=== PATIENT | female | born 1990 | race Hispanic/Latino ===

== ENCOUNTER 2019-12-11 10:04 | Inpatient (IN) ==
[2019-12-11 11:27] LABS: BASO# 0.12 X1000 (0.0-0.2); BASO% 1.1 % (0.0-0.8); EOS# 0.62 X1000 (0.0-0.7); EOS% 5.5 % (0.0-10.0); HEMATOCRIT 38.3 % (37.0-47.0); HEMOGLOBIN 12.8 g/dL (12.0-16.0); LYMPH% 25.6 % (20.5-51.1); MCH 28.3 PG (27-31); MCHC 33.4 g/dL (33-37); MCV 84.7 FL (81-99); MONO# 0.78 X1000 (0.11-0.59); MONO% 6.9 % (1.7-9.3); MPV 13.2 FL (7.4-10.4); NEUT% 60.9 % (42.2-75.2); PLT 183 X1000 (130-400); RBC 4.52 XMIL (4.2-5.4); RDW 12.8 % (11.5-14.5); WBC 11.32 X1000 (4.8-10.8)
[2019-12-11 11:55] LABS: AGAP 16; ALB/GLOB RATIO 1.7; ALBUMIN 4.6 g/dL (3.5-5.0); ALKALINE PHOSPHATASE 75 U/L (32-104); BUN 13 mg/dL (8-22); CALCIUM 9.4 mg/dL (8.8-10.2); CHLORIDE 103 mmol/L (98-107); COSMO 277; CREATININE 0.6 mg/dL (0.5-0.9); ESTIMATED GFR > 60; GLUCOSE 92 mg/dL (70-104); GOT 23 U/L (10-30); GPT 39 U/L (10-36); POTASSIUM 3.9 mmol/L (3.5-5.1); SODIUM 139 mmol/L (136-145); TCO2 20 mmol/L (25-35); TOTAL BILIRUBIN 0.29 mg/dL (0.20-1.00); TOTAL PROTEIN 7.3 g/dL (6.3-8.3)
--- NOTE | 2019-12-11 11:59 | EKG Report ---
Test Performed on : 12/11/2019 11:38:28 AM Test Reason : SOB Blood Pressure : / mmHG Vent. Rate : 074 BPM Atrial Rate : 074 BPM P-R Int : 156 ms QRS Dur : 090 ms QT Int : 396 ms P-R-T Axes : 045 072 023 degrees QTc Int : 439 ms Normal sinus rhythm. Normal ECG When compared with ECG of 09-JAN-2019 13:35, No significant change was found Unconfirmed Result
--- NOTE | 2019-12-11 12:53 | Diag Imaging Result Doc PS360 ---
EXAM: CT ANGIOGRM PULMONARY ARTERIES INDICATION: hemoptysis TECHNIQUE: This exam was performed using automated exposure control, adjustment of mA or kV according to patient size, and/or use of iterative reconstruction technique. Thin section axial images and 3-D MIPS were obtained. COMPARISON: None. FINDINGS: There is excessive respiratory motion artifact, which somewhat decreases sensitivity, especially at the distal branches of the pulmonary arteries. However, there is no discrete filling defect to indicate pulmonary embolism. There is no evidence of aortic dissection or aneurysm. There is no cardiomegaly. There is no evidence of significant mediastinal or hilar lymphadenopathy. There is a small focal airspace consolidation involving the left lower lobe that can be seen on image 70 of series 4. This could represent nonspecific focal pneumonitis or focal alveolar hemorrhage. The lungs are clear, otherwise. There is no pleural fluid collection and no pneumothorax. Limited views of the upper abdomen reveals moderate to advanced diffuse hepatic steatosis. There is no evidence of acute osseous abnormality. IMPRESSION: 1.Small focus of airspace consolidation involving the left lower lobe that is nonspecific. This could be the site of focal alveolar hemorrhage or nonspecific pneumonitis. 2.Although this study is limited somewhat by motion artifact, no discrete pulmonary embolism is appreciated. 3.Hepatic steatosis. Electronically signed by Juanito Bae 12/11/2019 12:51 PM
[2019-12-11] MEDS ORDERED: ZOSYN 3.375 GM in NS 50 ML IV ONE (14:05)
[2019-12-11] MEDS ORDERED: TUBERSOL ID ONE (14:07)
--- NOTE | 2019-12-11 14:08 | PROVIDER DOCUMENTATION ---
This chart was entered by Shalini Fang Scribe, acting as scribe for Jean Claude Rodriguez CRNP. HPI-Respiratory General - General Chief Complaint: Shortness of Breath Stated Complaint: SORE THROAT Time Seen by Provider: 12/11/19 10:07 Source: patient Allergies/Adverse Reactions: Patient Allergies Allergy/AdvReac Type Severity Reaction Status Date / Time No Known Allergies Allergy Verified 12/11/19 10:52 Home Medications: Home Medication List Medication Instructions Recorded Confirmed Last Taken Type NK [No Home Medications] 12/11/19 12/11/19 Unknown History - History of Present Illness-Resp Nature of Presenting Problem: 29yohf presents to ED cc chest pain with deep inspiration, SOB, productive cough with black sputum, night sweats and generalized body aches for 3 days. She does live with multiple family members. Pt denies F/N/V/D/recent travel or known contact with COVID-19. Quality of Pain: reports: tightness Severity in ED: reports: moderate Onset/Duration: reports: 3 days ago Timing: reports: still present Cough Quality/Degree: reports: productive cough Episode Frequency: no prior episodes Current Respiratory Medication Therapy: Initiated see nurses note Modifying Factors: worse with: deep breath Associated Symptoms: reports: chest pain/soreness, cough, shortness of breath. denies: fever/chills Similar Symptoms Previously?: No Recently seen or treated by another doctor?: No Review of Systems - Adult - REVIEW OF SYSTEMS - ADULT Constitutional: reports: see HPI, night sweats. denies: chills, fever, fatique Eyes: reports: no symptoms reported Ears, Nose, Mouth & Throat: reports: no symptoms reported Cardiovascular: reports: see HPI, chest pain. denies: irregular heart rate, palpitations Respiratory: reports: see HPI, chronic cough, excessive sputum production (black), shortness of breath Gastrointestinal: reports: no symptoms reported Genitourinary: reports: no symptoms reported Musculoskeletal: reports: see HPI, muscle aches Integumentary: reports: no symptoms reported Neurological: reports: no symptoms reported Psychiatric: reports: no symptoms reported Endocrine: reports: no symptoms reported Hematologic/Lymphatic: reports: no symptoms reported Allergic/Immunologic: reports: no symptoms reported All Other Systems: Reviewed and Negative Past History - Adult - PAST MEDICAL HISTORY-ADULT Review of Records: reports: Nursing Assessment Review, Medications Reviewed, Social history reviewed & non-contributory. Major Childhood Illnesses: reports: denies history Cardiovascular: reports: denies history Respiratory: reports: denies history Gastrointestinal: reports: denies history Obstetrical/Gynecological: reports: denies history Genitourinary: reports: denies history Musculoskeletal: reports: denies history Neurological: reports: denies history Endocrine/Immune: reports: denies history Other Conditions: reports: denies history - PRIOR SURGERIES/PROCEDURES Surgical/Procedure History: reports: none - PRIOR HOSPITALIZATIONS Prior Hospitalizations: reports: none - IMMUNIZATION STATUS Childhood Immunizations: See Nurse Assessment Flu Vaccine: See Nurse Assessment - FAMILY HISTORY Family History: reviewed, not pertinent Physical Exam-General - PHYSICAL EXAM-ADULT Initial Vital Signs Reviewed: Yes - CONSTITUTIONAL General Appearance: appears well, alert. negative: anxious, combative - EYES Eyes: PERRL/EOMI, pink conjunctivae. negative: photophobia - HEAD, EARS, NOSE, MOUTH & THROAT HENMT: normocephalic/atraumatic, moist mucous membranes, TM abnormal (bulging and Otits media, bilateral). negative: angioedema - NECK Neck: non-tender, full range of motion, supple, normal inspection. negative: lymphadenopathy - RESPIRATORY Respiratory: chest non-tender, normal breath sounds, wheezing (bilateral in lower lobes), other (productive cough). negative: crackles, rhonchi - CARDIOVASCULAR Cardiovascular: normal peripheral pulses, regular rate, rhythm, no edema, no murmur. negative: bradycardia, tachycardia - GASTROINTESTINAL (ABDOMEN) Abdominal Exam: normal bowel sounds, non tender, soft. negative: guarding, rebound - LYMPHATIC Lymphatic: no adenopathy. negative: enlargement - MUSCULOSKELETAL Back Exam: normal inspection, no CVA tenderness, no vertebral tenderness Extremity: normal range of motion, non-tender, normal gait, normal inspection, no pedal edema, no calf tenderness, normal capillary refill. negative: deformity, swelling - SKIN Integumentary: normal color, normal turgor, warm/dry. negative: diaphoresis, jaundice, rash - NEUROLOGIC Neurologic: pension agent II-XII nml as tested, grossly normal - PSYCHIATRIC Psych/Mental Status: normal mood/affect, oriented x 3. negative: anxious - HEART Score HEART Score: History: Slightly Suspicious HEART Score: ECG: Normal HEART Score: Age: < or = 45 Years HEART Score: Risk Factors for Atherosclerotic Disease: No Risk Factors Known Progress - PLAN OF CARE/RESULTS Progress/Plan/Lab Results: Vital Signs - 8 hr 12/11/19 10:44 Temperature 98.8 F Pulse Rate 80 Respiratory Rate 22 Blood Pressure 135/76 O2 Sat by Pulse Oximetry 97 Bedside Urine ED: Urine Bedside Start: 12/11/19 10:36 Freq: ORDERED Status: Active Protocol: Activity Type Activity Date Activity User E-Sign Co-Sign Detail Recorded Client Recorded Date Recorded By Document 12/11/19 11:47 [id number] 12/11/19 11:48 [id number] 12/11/19 11:47 Point of Care [Bedside Point of Care] -Lot # [id number] - Results Negative -Control Line Visible? Yes Laboratory Results - last 24 hr 12/11/19 12/11/19 12/11/19 11:15 11:15 11:15 WBC 11.32 H RBC 4.52 Hgb 12.8 Hct 38.3 MCV 84.7 MCH 28.3 MCHC 33.4 RDW Std Deviation 12.8 Plt Count 183 MPV 13.2 H Immature Gran % (Auto) 0.0 Neut % (Auto) 60.9 Lymph % (Auto) 25.6 [place] % (Auto) 6.9 Eos % (Auto) 5.5 Baso % (Auto) 1.1 H Immature Gran # (Auto) 0.00 Neut # (Auto) 6.90 H Lymph # (Auto) 2.90 [place] # (Auto) 0.78 H Eos # (Auto) 0.62 Baso # (Auto) 0.12 Sodium 139 Potassium 3.9 Chloride 103 Carbon Dioxide 20 L Anion Gap 16 BUN 13 Creatinine 0.6 Estimated GFR/1.73 m2 > 60 BUN/Creatinine Ratio 22 Glucose 92 Calculated Osmolality 277 Calcium 9.4 Total Bilirubin 0.29 AST 23 ALT 39 H Alkaline Phosphatase 75 Total Protein 7.3 Albumin 4.6 Globulin 2.7 Albumin/Globulin Ratio 1.7 Plasma Lactate 1.2 Orders Category Date Time Status ED: Urine Bedside ORDERED Care 12/11/19 10:36 Active NEWS Score 2-4:Order NEWS Lactate Series NOW Care 12/11/19 10:53 Completed CTA [CT ANGIOGRM PULMONARY ARTERIES] [CT] Stat Exams 12/11/19 10:37 Completed CBC WITH ELECTRONIC DIFF [HEME] Stat Lab 12/11/19 11:15 Completed COMPREHENSIVE METABOLIC PANEL [CHEM] Stat Lab 12/11/19 11:15 Completed LACTATE, PLASMA [CHEM] Lab 12/11/19 11:15 Completed LACTATE, PLASMA [CHEM] Lab 12/11/19 14:00 Uncollected LACTATE, PLASMA [CHEM] Lab 12/11/19 17:00 Uncollected SPUTUM CULTURE WITH GRAM STAIN [RM] Stat Lab 12/11/19 10:40 Uncollected EKG [EKG] Stat Ther 12/11/19 11:58 Draft Result Diagrams: 12/11/19 11:15 12/11/19 11:15 - EKG 1 Time of EKG reading by physician:: 11:38 EKG Read and Signed by:: Jae Aldrich EKG Interpretation (*Must complete 3 of following elements*): Normal Rate: 74 Rhythm: NSR [employer]: normal QRS: normal ST Wave: normal - CT/MRI 1 CT Study: other (Pulmonary) Impression: See EMR Report (IMPRESSION: 1.Small focus of airspace consolidation involving the left lower lobe that is nonspecific. This could be the site of focal alveolar hemorrhage or nonspecific pneumonitis. 2.Although this study is limited somewhat by motion artifact, no discrete pulmonary embolism is appreciated. 3.Hepatic steatosis. Electronically signed by Juanito Bae 12/11/2019 12:51 PM) - CONSULTS/PCP/HOSPITALIST Notification #1 *Consult/PCP/Hospitalist*: Dr. Montelongo [phone];re-[phone] Time Discussed: 13:29 Consult Disposition: other (wants pt admitted to hospitalist and will see upstairs) #2 Consult: Rosa/[email or web address] Time Discussed: 14:02 Consult Disposition: Admit (accepted to Hospitalist) Departure - Departure Date of Disposition Decision: 12/11/19 Time of Disposition Decision: 12:50 DIAGNOSIS: Hemoptysis, Pneumonitis Dyspnea Qualifiers: Dyspnea type: shortness of breath Qualified Code(s): R06.02 - Shortness of breath Disposition: ADMITTED INPATIENT 09 Certified Medical Emergency: Emergent Condition: Stable Additional Instructions: ED Follow Up Instructions: You have been treated by a care provider in the Emergency Department. These instructions are being provided to you so you can have an understanding of how to care for yourself upon discharge. Upon discharge from the Emergency Department, you are responsible for making arrangements for follow-up care by a physician of your choice. Take all prescribed medications as directed. Return to the Emergency Department immediately for any new or worsening symptoms. You may call the Physician Referral phone number at [phone] to obtain a list of Physicians who are taking new patients. Referrals and Follow-Ups: None,PCP [Primary Care Provider] - - Critical Care Note This patient required my direct & personal management of CC.: No Attestation - Physician/ JESUSITA Attestation Patient care was provided by Advanced Practice Provider:: Yes Advanced Practice Provider:: Jean Claude Rodriguez Advanced Practice Provider documentation review:: The Mid-level provider documentation, treatment plan and medical decision making was reviewed by the physician who agrees with all treatment and medical decision making by the MLP. The physician spent face to face time with patient:: No Advanced Practice Provider documentation review:: Supervising physician onsite and consulted in the evaluation and care of this patient. The physician did not have a face to face encounter with the patient. This chart was documented by the indicated scribe, (Shalini Fang Scribe) and accurately reflects the services I performed and decisions made by me, Jean Claude Rodriguez CRNP, as attested by the provider's signature.
[2019-12-11 14:19] LABS: URINE SOURCE CLEAN CATCH
[2019-12-11 14:31] LABS: BILIRUBIN URINE NEGATIVE (NEGATIVE); BLOOD URINE NEGATIVE (NEGATIVE); COLOR YELLOW; GLUCOSE URINE NEGATIVE (NEGATIVE); KETONE URINE NEGATIVE (NEGATIVE); LEUKOCYTES URINE NEGATIVE (NEGATIVE); NITRITE URINE NEGATIVE (NEGATIVE); PROTEIN URINE TRACE mg/dL (NEGATIVE); SP GRAVITY URINE 1.027; TURBIDITY URINE HAZY (CLEAR); UROBILINOGEN URINE NORMAL (NORMAL)
[2019-12-11 14:32] LABS: UR EPITHELIAL CELLS >10 /HPF (<10); URINE BACTERIA 2+ /HPF; URINE RBC <10 /HPF (<10)
[2019-12-11 14:33] LABS: UR AMPHETAMINES QUAL NONE DETECTED (NONE DETECT); UR BARBITUATES QUAL NONE DETECTED (NONE DETECT); UR BENZODIAZEPIN QUAL NONE DETECTED (NONE DETECT); UR CANNABINOIDS QUAL NONE DETECTED (NONE DETECT); UR COCAINE QUAL NONE DETECTED (NONE DETECT); UR METHADONE QUAL NONE DETECTED (NONE DETECT); UR OPIATES QUAL NONE DETECTED (NONE DETECT); UR OXYCODONE QUAL NONE DETECTED (NONE DETECT); UR PCP QUAL NONE DETECTED (NONE DETECT)
[2019-12-11] MEDS: NS 1,000 ML IV SCH (15:32)
--- NOTE | 2019-12-11 15:49 | PULMONOLOGY CONSULTATION ---
DATE: 12/11/2019 HISTORY OF PRESENT ILLNESS: This is a 29-year-old [place] female who presented to the ER this morning with pleurisy, shortness of breath, productive cough with black sputum, night sweats and generalized body aches for 3 days. Initial labs in the ER is nonsignificant except mild leukocytosis. CT angiogram pulmonary arteries showed small focus of airspace consolidation involving the left lower lobe that is nonspecific and could be the site of focal alveolar hemorrhage or nonspecific pneumonitis. There is no discrete pulmonary embolism appreciated and hepatic steatosis identified. The patient currently is held in the ER. She is lying in bed with no acute distress noted. She is on room air. She speaks limited Turkish. She does have chronic productive cough with excessive black phlegm, shortness of breath with activities and pleurisy and chest tightness. She reports no fever, chills, palpitation, sore throat, nausea, bowel habit change, urination discomfort, orthopnea or pedal edema. She has no recent travel. She has no known contact with [employer]. She does live with multiple family members, but none of them was sick recently. She also reports night sweats and generalized body ache in the last 3 days. PAST MEDICAL HISTORY: Nonsignificant. She does have history of bronchitis in 2018 with some allergies. PAST SURGICAL HISTORY: None, FAMILY HISTORY: Patient lives at home with multiple family members. She has 4 children. She is a never smoker. She has no history of alcohol or illicit drug use. FAMILY HISTORY: Unknown. REVIEW OF SYSTEMS: A limited review of systems was performed as patient speaks limited Turkish. All pertinent information is listed within the HPI. PHYSICAL EXAMINATION: Vital Signs: Temperature 98.8 degrees, blood pressure 145/76, pulse 80, respiratory rate 22, oxygen saturation 97% on room air. General: Well developed, well nourished, lying in bed, no acute distress noted. HEENT: Atraumatic, normocephalic. Trachea midline. Mucosa pink and moist. Oropharynx clear. Pupils equal, round, reactive to light. Respiratory: Even and unlabored. No increased work of breathing. No accessory muscle use noted. Symmetrical excursion. Auscultation revealed mild expiratory crackles. Some expiratory wheezing, bibasilarly. No crackles noted. Cardiovascular: Regular rate and rhythm with S1 and S2 appreciated. Gastrointestinal: Soft, nontender, nondistended. Normoactive bowel sounds in all 4 quadrants. Extremities: No pedal edema. No cyanosis. No clubbing. Dorsalis pedis 2+ bilaterally. Neurologic: Alert and oriented x3. Speech fluent. Follows commands. Moving all extremities equally with no weakness noted. LABORATORY DATA: White blood cell 11.32, hemoglobin 12.8, hematocrit 38.3, platelets 183,000. Sodium 139, potassium 3.9, chloride 103, carbon dioxide 20, BUN 14, creatinine 0.6 glucose 92. IMAGING DATA: See HPI for CT angiogram pulmonary arterials. ASSESSMENT: This is a 29-year-old [place] female with no significant medical history. She presented to the ER this morning with pleurisy, shortness of breath, hemoptysis, night sweats and generalized body ache for [address] angiogram, pulmonary arteries revealed small focus of airspace consolidation involving the left lower lobe that is nonspecific and could be the site of a focal alveolar hemorrhage or nonspecific pneumonitis. The patient currently is holding in the emergency room. 1. Hemoptysis, rule out pulmonary embolism. TB skin test ordered. 2. Pneumonia. Sputum culture has been ordered but is not collected yet. 3. Coronavirus Disease-19 tested with results pending. PLAN: 1. We recommend to watch the patient overnight in the hospital to monitor hemoptysis closely. If the patient stays stable or improved, she can be discharged home with empiric antibiotic such as Levaquin for community-acquired pneumonia. 2. We follow up the results of TB skin test. 3. Further recommendation pending hospital course. Thank you for the courtesy of this consult. Dr. Montelongo did the examination, evaluation, management and orders. JD did dictation for Dr. Montelongo according to his direction. Dictated by JD De Leon for Dick Montelongo MD cc: JD De Leon MD [facility]
--- NOTE | 2019-12-11 15:55 | HISTORY AND PHYSICAL ---
This is a 29-year-old said for 4 days she has had a little more cough, feels like she might have subjective fever and productive cough, some blood-tinged sputum and dark sputum at times, brown sputum. PAST MEDICAL HISTORY: Unremarkable except she has had 2 vaginal deliveries. No past medical history of lupus or heart disease or diabetes. No surgical history. ALLERGIES: No known drug allergies that she is aware of. FAMILY HISTORY: Noncontributory. She does not have any history she knows of family of lung problems or kidney problems or heart problems. SOCIAL HISTORY: Negative for tobacco, alcohol and no illicit drug use. REVIEW OF SYSTEMS: She does not report any weight gain or loss, possibly subjective fever.HEENT: Sore throat and some postnasal drainage and sinus congestion in the last couple days. No neck pain. No complaints of adenopathy. Respiratory: Slight increase in dyspnea and cough, shortness of breath. Cardiovascular: No chest pain or tachy palpitation. Gastrointestinal and Genitourinary: No gross hematuria or dysuria. Musculoskeletal/Neurologic: No focal neurologic deficits. PHYSICAL EXAMINATION: She is awake and alert. Pleasant. She does not speak [place] very well. We used an parlor maid. VITAL SIGNS: Temp 98.8 degrees, pulse 80, respirations 22, blood pressure 135/76. HEENT: Pupils are equal and round. LUNGS: Clear in all lung piña anterolateral. CARDIOVASCULAR: Regular rhythm and rate without murmur or S3. No cervical adenopathy. CVP less than 6 cm. ABDOMEN: Soft. SKIN: Warm and dry. EXTREMITIES: No pedal edema. White count 07816, hematocrit 38, platelet count 183,000. Sodium 139, potassium 3.9, chloride 103, BUN 13, creatinine 0.6. Blood sugar 92. Calcium 9.4, albumin 4.6. Urine drug screen negative for opiates, oxycodone, methadone, barbiturates, phencyclidine, amphetamines, benzodiazepines, urine cocaine and cannabinoids. Urinalysis unremarkable. There was 2+ bacteria. We did see a few white blood cells, but not had any symptoms. We did a pulmonary arteriogram CT. There is small focus of airspace consolidation involving the left lower lobe that is nonspecific. This could be the site of focal alveolar hemorrhage, nonspecific pneumonitis. There was some motion artifact. ASSESSMENT AND PLAN: Upper respiratory complaints, sore throat. Appears to have pneumonitis nonspecific. She has no known exposure to COVID-19, but we will check with Dr. Montelongo. He would like to at least check that. We will give her some albuterol, Atrovent or DuoNeb and will put her on a little steroid inhaler as well using Symbicort 80 mcg 2 puffs twice a day. She has no shows no allergies but we are going to put her on Rocephin 1 q.24 hours and we will put her on azithromycin 500 mg IV daily. We will give her a little supplementary O2 at 2 L and will put her on some guaifenesin 600 mg extended release twice a day, put her on a regular diet. Repeat a chest x-ray in the morning. We will check her T4, TSH, B12, and folate. We will check a basic metabolic profile and magnesium and CBC again in the morning as well as another portable chest x- ray. cc: Edwin Bonilla MD
[2019-12-11] MEDS ORDERED: DUONEB (A & A) INH SCH (16:00)
[2019-12-11] MEDS: ROCEPHIN 1 GM in NS 50 ML IV SCH (16:50)
[2019-12-11] MEDS: ZITHROMAX 500 MG/NS 500 MG/250 ML IVPB IV SCH (18:40)
[2019-12-11] MEDS: TYLENOL PO PRN (22:08)
[2019-12-11] MEDS: MUCINEX PO SCH (22:08)
[2019-12-11] MEDS: VENTOLIN HFA INH SCH (22:33)
[2019-12-11] MEDS: SYMBICORT 80/4.5 MICROGM INHALER INH SCH (23:03)
[2019-12-12] MEDS: VENTOLIN HFA INH SCH ×4 (04:10→22:25)
[2019-12-12] MEDS: NS 1,000 ML IV SCH ×2 (05:44→15:07)
[2019-12-12 06:42] LABS: BASO# 0.02 X1000 (0.0-0.2); BASO% 0.3 % (0.0-0.8); EOS# 0.59 X1000 (0.0-0.7); EOS% 8.6 % (0.0-10.0); HEMOGLOBIN 11.7 g/dL (12.0-16.0); LYMPH# 3.02 X1000 (1.2-3.4); LYMPH% 44.2 % (20.5-51.1); MCH 28.5 PG (27-31); MCHC 33.4 g/dL (33-37); MCV 85.4 FL (81-99); MONO# 0.48 X1000 (0.11-0.59); MPV 13.1 FL (7.4-10.4); NEUT# 2.72 X1000 (1.4-6.5); NEUT% 39.9 % (42.2-75.2); PLT 174 X1000 (130-400); RDW 12.9 % (11.5-14.5); WBC 6.83 X1000 (4.8-10.8)
[2019-12-12 07:04] LABS: AGAP 12; ALB/GLOB RATIO 1.4; ALBUMIN 3.9 g/dL (3.5-5.0); ALKALINE PHOSPHATASE 65 U/L (32-104); BUN 9 mg/dL (8-22); CALCIUM 8.7 mg/dL (8.8-10.2); CHLORIDE 106 mmol/L (98-107); COSMO 276; CREATININE 0.5 mg/dL (0.5-0.9); ESTIMATED GFR > 60; GLUCOSE 91 mg/dL (70-104); GOT 20 U/L (10-30); GPT 32 U/L (10-36); MAGNESIUM 2.2 mg/dL (1.5-2.7); POTASSIUM 3.8 mmol/L (3.5-5.1); SODIUM 139 mmol/L (136-145); TCO2 21 mmol/L (25-35); TOTAL BILIRUBIN 0.37 mg/dL (0.20-1.00); TOTAL PROTEIN 6.6 g/dL (6.3-8.3)
[2019-12-12 07:23] LABS: FREE T4 0.87 ng/dL (0.93-1.70); TSH 1.79 uIUmL (0.27-4.20)
[2019-12-12] MEDS: ZITHROMAX 500 MG/NS 500 MG/250 ML IVPB IV SCH ×2 (07:38→22:50)
--- NOTE | 2019-12-12 08:40 | Diag Imaging Result Doc PS360 ---
EXAM: CHEST-PORTABLE 12/12/2019 HISTORY: pneumonia TECHNIQUE: AP portable upright at 0820 COMMENT: There is no evidence of acute cardiac or pulmonary disease. Considering differences in technique there has been no significant change since 01/09/2019. IMPRESSION: No acute disease. Electronically signed by Gage Kim 12/12/2019 8:37 AM
[2019-12-12] MEDS: SYMBICORT 80/4.5 MICROGM INHALER INH SCH ×2 (08:53→20:21)
[2019-12-12] MEDS: MUCINEX PO SCH ×2 (09:54→22:51)
--- NOTE | 2019-12-12 09:54 | PROGRESS NOTE ---
DATE: 12/12/2019 SUBJECTIVE: Ms. Hagan feels better, breathing comfortably. OBJECTIVE: Vital Signs: She remains afebrile, temperature 97.9 degrees. Pulse 94, respirations 16, blood pressure 111/58. HEENT: Pupils are equal and round. Lungs: Clear in all lung piña. Cardiovascular: Regular rhythm and rate without murmur or S3. Abdomen: Soft. Skin: Warm and dry. IMAGING STUDIES: Chest x-ray from this morning, no acute disease. ASSESSMENT AND PLAN: Feeling better. Her Coronavirus Disease 2019 was checked and waiting on results. Dr. Montelongo has evaluated. She had some hemoptysis, rule out pulmonary embolism. Tuberculosis skin test was ordered. Suspect early pneumonia. Cultures obtained. Coronavirus Disease 2018 tested, results pending. If remains stable, I think she can go either tomorrow or Sunday and let her go with an antibiotic, Levaquin, for community-acquired pneumonia. Follow up on the results of the tuberculosis skin test. REVIEW OF HER ORDERS: She is on Symbicort inhaler and DuoNeb, getting guaifenesin ER 600 mg b.i.d., ceftriaxone 1 gram IV every 24 hours and azithromycin. LABORATORY DATA: Her labs were unremarkable this morning, white count 6830, hematocrit 35, platelet count 174,000. Sodium 139, potassium 3.8, chloride 106, bicarbonate 21, BUN 9, creatinine 0.5. Her T4 was 0.87. TSH is 1.79. cc: Edwin Bonilla MD
[2019-12-12] MEDS: ROCEPHIN 1 GM in NS 50 ML IV SCH (15:07)
--- NOTE | 2019-12-12 18:42 | PULMONOLOGY PROGRESS NOTE ---
DATE: 12/12/2019 SUBJECTIVE: The patient is awake and alert. She reports she does not have any pain. She denies additional cough or blood. No sputum has been collected because she is currently in isolation for possible COVID-19. OBJECTIVE: vital signs: The patient has been afebrile for the last 24 hours. Blood pressure 127/68, heart rate 90, respiratory rate 18, oxygen saturation 99% on room air. HEENT: Pupils are equal and reactive. Oropharynx appears clear. neck: Neck is supple. pulmonary: Chest reveals good air entry bilaterally without wheezing or rhonchi. Cardiac: S1-S2. abdomen: Abdomen is soft. Extremities: Extremities are without edema. LABORATORIES: Microbiology is negative to date. IMPRESSION: A 29-year-old female who presents with: 1. Cough. 2. Pleurisy. 3. Hemoptysis. RECOMMENDATIONS: 1. Send a QuantiFERON Gold TB test for possible tuberculosis. 2. Collect sputum for AFB and bacteria if the COVID-19 test returns negative. cc: Waldo Dick MD
[2019-12-12] MEDS: TYLENOL PO PRN (22:51)
[2019-12-13] MEDS: VENTOLIN HFA INH SCH ×4 (04:20→22:10)
[2019-12-13 06:06] LABS: BASO# 0.01 X1000 (0.0-0.2); BASO% 0.1 % (0.0-0.8); EOS# 0.42 X1000 (0.0-0.7); EOS% 6.1 % (0.0-10.0); HEMATOCRIT 35.3 % (37.0-47.0); HEMOGLOBIN 11.6 g/dL (12.0-16.0); LYMPH# 3.12 X1000 (1.2-3.4); LYMPH% 45.3 % (20.5-51.1); MCH 28.4 PG (27-31); MCHC 32.9 g/dL (33-37); MCV 86.3 FL (81-99); MONO# 0.43 X1000 (0.11-0.59); MONO% 6.3 % (1.7-9.3); MPV 12.9 FL (7.4-10.4); NEUT% 42.2 % (42.2-75.2); PLT 166 X1000 (130-400); RBC 4.09 XMIL (4.2-5.4); RDW 12.8 % (11.5-14.5); WBC 6.88 X1000 (4.8-10.8)
[2019-12-13 06:25] LABS: AGAP 13; ALB/GLOB RATIO 1.7; ALKALINE PHOSPHATASE 66 U/L (32-104); BUN 9 mg/dL (8-22); CALCIUM 8.6 mg/dL (8.8-10.2); CHLORIDE 108 mmol/L (98-107); COSMO 280; CREATININE 0.5 mg/dL (0.5-0.9); ESTIMATED GFR > 60; GLUCOSE 92 mg/dL (70-104); GOT 22 U/L (10-30); GPT 37 U/L (10-36); MAGNESIUM 1.9 mg/dL (1.5-2.7); POTASSIUM 3.8 mmol/L (3.5-5.1); SODIUM 141 mmol/L (136-145); TCO2 20 mmol/L (25-35); TOTAL BILIRUBIN 0.23 mg/dL (0.20-1.00); TOTAL PROTEIN 6.4 g/dL (6.3-8.3)
[2019-12-13] MEDS: SYMBICORT 80/4.5 MICROGM INHALER INH SCH ×2 (07:55→20:02)
[2019-12-13] MEDS: MUCINEX PO SCH ×2 (08:00→21:42)
--- NOTE | 2019-12-13 09:22 | PROGRESS NOTE ---
DATE: 12/13/2019 SUBJECTIVE: She feels good. No cough. No fever. No sore throat. OBJECTIVE: Vitals: Temperature 97.4 degrees, pulse 85, respirations 14, blood pressure 106/52. HEENT: Pupils are equal and round. Lungs: Lungs are clear in all lung piña. Cardiovascular: Regular rhythm and rate without murmur or S3. Abdomen: Soft. Skin: Warm and dry. ASSESSMENT: A 29-year-old female who presented with cough, pleurisy, and hemoptysis. We have a QuantiFERON gold TB test for possible tuberculosis, and collected sputum for AFB and bacteria. If the COVID-19 returns negative, we will send that off. REVIEW OF HER ORDERS: She is on ceftriaxone 1 g IV q.24h., azithromycin 500 mg IV q.24h, budesonide/formoterol 2 puffs b.i.d., and guaifenesin ER 600 mg b.i.d. cc: Edwin Bonilla MD
--- NOTE | 2019-12-13 14:13 | PULMONOLOGY PROGRESS NOTE ---
DATE: 12/13/2019 SUBJECTIVE: The patient is awake, alert, and conversant. She does not speak fluent [place]. She is without complaints. OBJECTIVE: Vital Signs: The patient has been afebrile for the last 24 hours. Blood pressure 106/52, heart rate 85, respiratory rate 14, oxygen saturation 99%. HEENT: Pupils are equal and reactive. Oropharynx appears clear. Neck: Supple. Chest: Reveals good air entry bilaterally. No wheezing. No rhonchi. No tactile fremitus. Cardiac: S1-S2. Abdomen: Soft. Extremities: Without edema. LABORATORIES: White blood count 6.88, hemoglobin 11.6, platelet count 166,000. Microbiology reveals no new data. IMPRESSION: A 29-year-old with 1. Cough. 2. Hemoptysis. 3. Pleurisy. PLAN: 1. Await the results of her COVID-19 studies. 2. Attempt to collect sputum for C and S and AFB after COVID-19 test returns. 3. Await QuantiFERON gold study. 4. Continue current antibiotic regimen. cc: Waldo Dick MD
[2019-12-13] MEDS: ROCEPHIN 1 GM in NS 50 ML IV SCH (16:31)
[2019-12-13] MEDS: NS 1,000 ML IV SCH ×2 (16:31→21:43)
[2019-12-13] MEDS: ZITHROMAX 500 MG/NS 500 MG/250 ML IVPB IV SCH (21:42)
[2019-12-14] MEDS: VENTOLIN HFA INH SCH ×4 (03:42→22:52)
[2019-12-14] MEDS: NS 1,000 ML IV SCH ×2 (05:08→15:44)
[2019-12-14 06:21] LABS: BASO# 0.03 X1000 (0.0-0.2); BASO% 0.4 % (0.0-0.8); EOS# 0.36 X1000 (0.0-0.7); HEMATOCRIT 35.7 % (37.0-47.0); HEMOGLOBIN 11.6 g/dL (12.0-16.0); LYMPH# 3.01 X1000 (1.2-3.4); LYMPH% 42.1 % (20.5-51.1); MCH 28.2 PG (27-31); MCHC 32.5 g/dL (33-37); MCV 86.7 FL (81-99); MONO# 0.48 X1000 (0.11-0.59); MONO% 6.7 % (1.7-9.3); MPV 12.8 FL (7.4-10.4); NEUT# 3.27 X1000 (1.4-6.5); NEUT% 45.8 % (42.2-75.2); PLT 168 X1000 (130-400); RBC 4.12 XMIL (4.2-5.4); RDW 12.7 % (11.5-14.5); WBC 7.15 X1000 (4.8-10.8)
[2019-12-14 06:31] LABS: AGAP 14; ALB/GLOB RATIO 1.6; ALKALINE PHOSPHATASE 62 U/L (32-104); BUN 10 mg/dL (8-22); CHLORIDE 105 mmol/L (98-107); COSMO 278; CREATININE 0.6 mg/dL (0.5-0.9); ESTIMATED GFR > 60; GLUCOSE 91 mg/dL (70-104); GOT 20 U/L (10-30); GPT 34 U/L (10-36); MAGNESIUM 1.8 mg/dL (1.5-2.7); POTASSIUM 3.9 mmol/L (3.5-5.1); SODIUM 140 mmol/L (136-145); TCO2 21 mmol/L (25-35); TOTAL BILIRUBIN 0.21 mg/dL (0.20-1.00); TOTAL PROTEIN 6.5 g/dL (6.3-8.3)
--- NOTE | 2019-12-14 08:01 | PROGRESS NOTE ---
DATE: 12/14/2019 SUBJECTIVE: She feels good. She wants to go home. I talked to her . She does not speak French very well, but explained that we were still waiting on her TB serum test. Her TB skin test came back negative. We are still waiting on her Covid-19 as well. She looks good, breathing comfortably. OBJECTIVE: Temperature 97.7 degrees, pulse 78, respirations 18, blood pressure 108/69. Pupils are equal and round. Lungs are clear in all lung piña. Cardiovascular Examination: Regular rhythm and rate without murmur or S3. Urine output is 5900 mL. ASSESSMENT AND PLAN: Cough, hemoptysis, and pleurisy. Await results of her Covid-19. Attempt to collect sputum for culture and sensitivity, and AFB after Covid-19 returns. Await QuantiFERON gold study results. Anxious to go home. Hopefully, she can go home tomorrow. We will repeat another chest x-ray. Her x-ray from the showed no acute disease. Her pulmonary arteriogram showed a small focus of airspace consolidation involving the left lower lobe, nonspecific, and could be a site alveolar hemorrhage, and some evidence of hepatic steatosis. Continue current medications. She is on azithromycin and ceftriaxone. No growth from her blood cultures and urine cultures were negative. cc: Edwin Bonilla MD
[2019-12-14] MEDS: MUCINEX PO SCH ×2 (08:20→21:56)
[2019-12-14] MEDS: SYMBICORT 80/4.5 MICROGM INHALER INH SCH ×2 (08:39→22:52)
[2019-12-14] MEDS: ROCEPHIN 1 GM in NS 50 ML IV SCH (15:44)
[2019-12-14] MEDS: ZITHROMAX 500 MG/NS 500 MG/250 ML IVPB IV SCH (21:56)
--- NOTE | 2019-12-15 00:50 | PULMONOLOGY PROGRESS NOTE ---
DATE: 12/14/2019 SUBJECTIVE: The patient is awake, alert, and conversant. She denies additional cough or bloody sputum. She is without specific complaints. OBJECTIVE: Vital Signs: The patient has been afebrile for the last 24 hours. Blood pressure 121/76, heart rate 75, respiratory rate 18, oxygen saturation 100%. HEENT: Pupils are equal and reactive. Oropharynx appears clear. Neck: Supple. Chest: Reveals good air entry bilaterally without wheezing or rhonchi. Cardiac: S1, S2. Abdomen: Soft. Extremities: Without edema. LABORATORIES: Coronavirus testing is negative. QuantiFERON Gold TB test is pending. IMPRESSION: A 29-year-old with: 1. Cough. 2. Hemoptysis. 3. Pleurisy. 4. Negative Coronavirus Disease 2019 testing. PLAN: 1. Await QuantiFERON Gold TB study testing. 2. Collect sputum for C and S. 3. Anticipate discharge if QuantiFERON Gold testing is negative. cc: Waldo Dick MD
[2019-12-15] MEDS: VENTOLIN HFA INH SCH ×2 (04:44→08:43)
[2019-12-15] MEDS: NS 1,000 ML IV SCH (05:12)
[2019-12-15] MEDS: SYMBICORT 80/4.5 MICROGM INHALER INH SCH (08:43)
[2019-12-15] MEDS: MUCINEX PO SCH (10:08)
[2019-12-15 11:05] VITALS: BP 127/87
--- NOTE | 2019-12-15 14:16 | DISCHARGE SUMMARY ---
ADMISSION DATE: 12/11/2019 DISCHARGE DATE: 12/15/2019 This is a 29-year-old. She in last 4 days had a little more cough, feels like she might have subjective fever and cough and was concerned about a viral or a respiratory tract infection. PAST MEDICAL HISTORY: Unremarkable except for 2 vaginal deliveries. On presentation we did check her for COVID-[address] Montelongo wanted to check her for TB as well, pulmonary arteriogram she had small focus of airspace consolidation involving left lower lobe nonspecific and her chest x-ray really showed no acute disease. She did fine, remained afebrile, no cough. COVID-19 was negative. TB skin test was negative, her QuantiFERON gold results still pending but clinically looked good and felt she could go home, want her to follow up with Dr. Montelongo in a couple weeks. She will be discharged and she really is on no medication. Encourage her she wants to take some Mucinex [id number] she can but does not need any bronchodilators. cc: Edwin Bonilla MD
--- NOTE | 2019-12-15 15:46 | PROVIDER PROGRESS NOTE ---
Progress Note Dr. 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 She is on room air. No acute distress noted. She speaks very limited Mongolian. During my encounter, she called her and asked him to interpret. She reports no cough, no sputum and no pleurisy for 2 days. She is eager to go home. Objective: Vital Signs: T 97.8 (no fever in last 24 hours), VT 77, RR 19, BP 112/66 and SaO2 98% on room air. Physical Examination: General: Just walk back from the bathroom to the bed with no acute distress noted. No room air. Patient speaks limited Mongolian. HEENT: Normocephalic. Atraumatic. Trachea midline. Mucosa pink and moist. Oropharynx clear. PERRL. Chest: Even and unlabored. Symmetrical excursion. Auscultation reveals good air entry bilaterally. No wheezing or rhonchi. No tactile fremitus. CVS: S1 and S2 appreciated. Abdomen: Soft. Nontender. Nondistended. Bowel sounds present in all 4 quadrants. Extremities: No pedal edema. No cyanosis. No clubbing. Neuro: A/O x3. Speech fluent. Follow commands. Labs and Radiology: Assessment: Cough. Resolved. Pleurisy. Resolved. Hemoptysis. Resolved. Possible pneumonia. The result of COVID-19 test on 12/11/19 is negative. The result of TB skin test is negative. Sputum culture collected on 12/14/19 so far grows normal isatu. The results of QuantiFERON GOLD study are pending. Plan: Follow up the final resultsof Sputum C&S and AFB. Continue antibiotics including Azithromycin and Ceftriaxone. Continue bronchodilators. Follow up the results of QuantiFERON GOLD study. 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 CT findings are minimal and as patient presents with no fever, chills or weight loss, the possibility of TB is minimal.
== END 2019-12-15 15:26 | disposition home or self-care (01) | DRG 204 ==
LOC: ED 10:04 → 4N 16:27 → 3N 12-14 13:09
PROVIDERS: ATTEND Emergency Medicine